=== PATIENT | female | born 1960 | race Caucasian/White ===

== ENCOUNTER → 2017-04-23 | Day surgery (SDC) | payer BC ==
[~2017-04-23] MED LIST: IV RINGERS SOLUTION,LACTATED 1,000 ML IV ONE; PROPOFOL 20 ML IV ONE
== END | disposition home or self-care (01) ==
LOC: SURG 08:02
PROVIDERS: ATTEND Internal Medicine Gastroenterology
DX: Z09 Encounter for follow-up examination after completed treatment for conditions other than malignant neoplasm (principal); Z87.19 Personal history of other diseases of the digestive system; K57.30 Diverticulosis of large intestine without perforation or abscess without bleeding; B27.90 Infectious mononucleosis, unspecified without complication; J45.909 Unspecified asthma, uncomplicated
CPT/HCPCS: 45378; J2704; J7120

== ENCOUNTER → 2018-12-14 | Outpatient (CLI) | payer BC ==
--- NOTE | 2018-12-14 15:34 | RAD ---
Thyroid ultrasound, 12/14/2018: HISTORY: Thyromegaly The right lobe of the gland measures 4.1 x 1.5 x 1.2 cm while the left lobe of the gland measures 3.8 x 1.5 x 1.0 cm. There is an oval-shaped slightly hypoechoic nodule present in the medial aspect of the isthmus as best delineated in the longitudinal projection. It measures 1.6 x 0.4 x 0.9 cm. There are no internal calcifications. There is an 8 x 6 x 7 mm hypoechoic nodule with a smooth rim in the lower pole the right lobe of the gland. It is solid and somewhat hypervascular. No internal calcifications are seen. There is a tiny 4 x 4 by 5 mm hypoechoic nodule in the medial aspect of the midportion right lobe of the gland with probable thin internal septations. Its margins are smooth. No calcifications are seen. Several other tiny subcentimeter lesions in both lobes of the gland are probably colloid cysts. IMPRESSION: Multinodular thyroid gland as described above. While the sonographic characteristics are nonspecific, no highly suspicious thyroid nodules are seen. Sonographic follow-up is suggested. Electronically signed by: Kelby Lieberman MD (12/14/2018 3:31 PM) [facility]
== END | disposition home or self-care (01) ==
LOC: US 12:32
PROVIDERS: ATTEND Nurse Practitioner Family
DX: E04.2 Nontoxic multinodular goiter (principal)
CPT/HCPCS: 76536

== ENCOUNTER → 2020-12-12 | Outpatient (CLI) | payer BC ==
--- NOTE | 2020-12-12 12:27 | RAD ---
EXAM: DUAL ENERGY X-RAY ABSORPTIOMETRY (DEXA). HISTORY: Postmenopausal screening. FINDINGS: The lowest measured T-score is -1.5 lumbar spine in the 0.996, based on a bone mineral dens ity of g/cm^2. Refer to the worksheets for full detail. No comparison examinations are available. IMPRESSION: 1. Low bone mass. Bone mineral density yields a T-score between -1.0 and -2.5. Fracture risk is incre ased. 2. FRAX report: Not calculated. METHODOLOGY: Dual energy x-ray absorptiometry was performed to measure bone mineral density. The foll owing analysis is based on the 2019 Official Positions of the International Society for Clinical Dens itometry: Measurements of the hips and the average of L1-L4 are preferred. When the spine and/or hip cannot be feasibly measured or interpreted, or in the setting of hyperparathyroidism, distal radial bone minera l density may be measured. The lumbar spine T-score is based on the average bone mineral density of L1-L4. In the setting of art ifact or anatomic abnormality, some lumbar levels may be excluded, and the remaining levels used for calculation. A single lumbar level is not used for diagnosis, and if only a single level is available for assessment, another anatomic site will be used to assign a diagnosis. The hip T-score is based on the bone mineral density measurement of the femoral neck or total proxima l femur of either side, whichever is lowest. Bilateral mean values are not used for diagnosis. The forearm T-score is derived from 33% of the distal radius of the nondominant forearm. Electronically signed by: Lolly Mckenzie MD (12/12/2020 12:25 PM) [id number]
--- NOTE | 2020-12-12 12:44 | RAD ---
STUDY: CT of the left lower extremity without contrast INDICATION: Displaced fracture of the fourth metatarsal. Osteopenia. COMPARISON: None. TECHNIQUE: Axial CT imaging of the left lower extremity performed without contrast. Coronal and sagit isabell reformats were obtained. Images were obtained through the foot and ankle in addition to smaller f [id number] images at the mid to distal forefoot. One or more of the following individualized dose reduction techniques were utilized for this examinat ion: 1. Automated exposure control 2. Adjustment of the mA and/or kV according to patient size 3. Use of iterative reconstruction technique. FINDINGS: No fracture of the fourth metatarsal is identified. Small defect at the anterior calcaneal process wi th adjacent thin focus of mineralization is age indeterminant. Small os intermetatarseum. Normal alig nment across the Lisfranc interval. Tiny os tibiale externum. Fragmented hallux sesamoids which appea rs chronic. Minimal great toe MTP joint arthrosis. Small plantar calcaneal spur. The tendons are not well evaluated by technique but there are no findings to suggest acute disruption at a few locations along the foot there is the suggestion of soft tissue edema such as at the dorsal /lateral foot. Possible ganglion cyst along the dorsal/lateral margin of the talonavicular joint poss ibly extending to the lateral opening of the sinus tarsi, image 20 series 4. IMPRESSION: 1. The ordering indication states a displaced fracture of the fourth metatarsal but no fracture of t he fourth metatarsal is identified. 2. Small curvilinear focus of mineralization adjacent to the anterior process of the calcaneus, imag e 68 series 3, could indicate an avulsion fracture but this is age-indeterminate. The surrounding sof t tissues appear to be edematous. Correlate for recent trauma and pinpoint tenderness. 3. Possible ganglion cyst originating from the lateral opening of the sinus tarsi and extending darlene g the dorsal/lateral margin of the talonavicular joint. 4. Incomplete assessment of the tendons and ligaments by CT. No findings to suggest acute full-thick ness tendon disruption. Electronically signed by: SIVA WYNNE MD (12/12/2020 12:41 PM) [id number]
--- NOTE | 2020-12-12 15:49 | RAD ---
EXAM: Bilateral digital screening mammogram with tomosynthesis. HISTORY: 60-year-old female presents for screening mammography. TECHNIQUE: Full-field digital craniocaudal and mediolateral oblique 2D and 3D tomosynthesis images of both breasts are obtained for evaluation. Computer aided detection was applied. COMPARISON: 05/27/2018 BREAST PARENCHYMAL DENSITY: Level C - Heterogeneously dense. FINDINGS: There is no new suspicious mass, microcalcification or region of architectural distortion. IMPRESSION: BI-RADS Category 2: Benign finding(s). RECOMMENDATION: Annual mammography is recommended. If your mammogram demonstrates that you have dense breast tissue, which could hide abnormalities, and if you have other risk factors for breast cancer that have been identified, you might benefit from s upplemental screening tests that may be suggested by your ordering physician. Dense breast tissue, i n and of itself, is a relatively common condition. This information is not provided to cause undue c oncern, but rather to raise your awareness and to promote discussion with your physician regarding th e presence of other risk factors, in addition to dense breast tissue. A report of your mammography re sults will be sent to you and your physician. You should contact your physician if you have any ques tions or concerns regarding this report. Mammography is a sensitive method for finding small breast cancers, but it does not detect them all a nd is not a substitute for careful clinical examination. A negative mammogram does not negate a clin ically suspicious finding and should not result in delay in biopsying a clinically suspicious abnorma lity. PQRS compliance statement - Patient information was entered into a reminder system with a target due date for the next mammogram. "Our facility is accredited by the [employer] Mammography Program." Electronically signed by: Lolly Mckenzie MD (12/12/2020 3:46 PM) [id number]
== END ==
LOC: CT 08:56
PROVIDERS: ATTEND Family Medicine
DX: Z12.31 Encounter for screening mammogram for malignant neoplasm of breast (principal); S92.342A Displaced fracture of fourth metatarsal bone, left foot, initial encounter for closed fracture; M89.9 Disorder of bone, unspecified; M85.88 Other specified disorders of bone density and structure, other site; X58.XXXA Exposure to other specified factors, initial encounter; Y93.89 Activity, other specified; Y92.89 Other specified places as the place of occurrence of the external cause; Y99.8 Other external cause status
CPT/HCPCS: 73700; 77063; 77067; 77080